=== PATIENT | male | born 1965 | race Hispanic/Latino ===

== ENCOUNTER 2017-04-18 15:53 | Inpatient (IN) | payer MEDICAID, OTHER ==
[2017-04-18 15:53] VITALS: BMI 23.6
[2017-04-18 16:21] LABS: BASO % 0.3 % (0.0-2.0); EOS % 0.3 % (0.0-4.0); HEMATOCRIT 42.3 % (35.0-51.0); LYMPH # 2.3 K/uL (1.0-4.3); LYMPH % 23.5 % (20.0-40.0); MEAN CELL VOLUME 89.2 fL (80.0-94.0); MEAN CORPUSCULAR HEMOGLOBIN 30.7 pg (27.0-31.0); MEAN CORPUSCULAR HGB CONC 34.4 g/dL (33.0-37.0); MEAN PLATELET VOLUME 8.9 fL (7.2-11.7); MONO # 0.4 K/uL (0.0-0.8); MONO % 4.5 % (0.0-10.0); RED CELL DISTRIBUTION WIDTH 13.7 % (11.5-14.5); WHITE BLOOD COUNT 9.7 K/uL (4.8-10.8)
[2017-04-18 16:27] LABS: RBC URINE < 1 /hpf (0-3); URINE BACTERIA RARE (<OCC); URINE BILIRUBIN NEGATIVE (NEGATIVE); URINE BLOOD NEGATIVE (NEGATIVE); URINE COLOR Yellow (YELLOW); URINE GLUCOSE (UA) NORMAL (Normal); URINE KETONE NEGATIVE (NEGATIVE); URINE LEUKOCYTE ESTERASE NEG Leu/uL (Negative); URINE PROTEIN NEGATIVE (NEGATIVE); URINE UROBILINOGEN NORMAL mg/dL (0.2-1.0); WBC URINE < 1 /hpf (0-5)
[2017-04-18 16:27] LABS: CHLORIDE 102 mmol/L (98-107); POTASSIUM 3.9 mmol/L (3.6-5.2); SODIUM 136 mmol/L (132-148)
[2017-04-18 16:29] LABS: BILIRUBIN,TOTAL 0.7 mg/dL (0.2-1.3); GFR AFRICAN-AMERICAN > 60
[2017-04-18 16:30] LABS: ALB/GLOB RATIO 1.2 (1.0-2.1); ALKALINE PHOSPHATASE 56 U/L (38-126); ALT/SGPT 29 U/L (21-72); AST/SGOT 29 U/L (17-59); BLOOD UREA NITROGEN 9 mg/dL (9-20); CALCIUM 9.2 mg/dl (8.6-10.4); CARBON DIOXIDE 22 mmol/L (22-30); GLUCOSE,RANDOM 98 mg/dL (75-110); TOTAL PROTEIN 7.8 g/dL (6.3-8.3)
[2017-04-18 16:31] LABS: ALCOHOL SERUM 69 mg/dl (0-10)
--- NOTE | 2017-04-18 16:44 | C.PDOC ---
History Of Present Illness 53 year old male presents to the ED for heroin, alcohol, and benzo detox. Patient was prescreened. He admits last drink and last use today prior to arrival. He has no medical complaints at this time. Time Seen by Provider: 04/18/17 16:01 Chief Complaint (Nursing): Substance Abuse History Per: Patient History/Exam Limitations: no limitations Past Medical History Reviewed: Historical Data, Nursing Documentation, Vital Signs Vital Signs: Last Vital Signs Temp 98.2 F 04/18/17 15:56 Pulse 72 04/18/17 15:56 Resp 18 04/18/17 15:56 BP 129/82 04/18/17 15:56 Pulse Ox 96 04/18/17 16:45 - Medical History PMH: Denies: Diabetes, Hepatitis, HIV, HTN, Chronic Kidney Disease, Seizures, Sexually Transmitted Disease - [facility] Procedures DETOXIFICATION SERVICES FOR SUBSTANCE ABUSE TREATMENT (03/12/16) DRUG DETOXIFICATION (03/21/15) MEDICATION MANAGEMENT (03/12/16) Family History: States: Unknown Family Hx - Social History Hx Tobacco Use: Yes Hx Alcohol Use: Yes Hx Substance Use: Yes (IVDU Heroin) - Immunization History Hx Tetanus Toxoid Vaccination: No Hx Influenza Vaccination: No Hx Pneumococcal Vaccination: No Review Of Systems Psych: Positive for: Withdrawal, Other (Polysubstance abuse ) Physical Exam - Physical Exam Appears: Non-toxic, No Acute Distress Skin: Normal Color, Warm, Dry Head: Atraumatic, Normacephalic Eye(s): bilateral: Normal Inspection, PERRL, EOMI Oral Mucosa: Moist Cardiovascular: Rhythm Regular (Regular Rate) Respiratory: Normal Breath Sounds Gastrointestinal/Abdominal: Normal Exam, Soft, No Tenderness Extremity: No Pedal Edema, No Deformity Neurological/Psych: Oriented x3, Normal Speech ED Course And Treatment - Laboratory Results Result Diagrams: 04/18/17 16:17 04/18/17 16:17 O2 Sat by Pulse Oximetry: 96 Progress Note: Patient is medically cleared for evaluation and possible admittion for Detox. Patient was accepted by . Medical Decision Making Medical Decision Making: Patient medically cleared for detox pending lab results. Disposition - Disposition Disposition: HOSPITALIZED Disposition Time: 17:13 Condition: STABLE Forms: [facility] ([facility]) - Clinical Impression Clinical Impression: Drug abuse - Scribe Statement The provider has reviewed the documentation as recorded by the Scribe Eddy Fercho Decision To Admit - Pt Status Changed To: Hospital Disposition Of: Inpatient - Admit Certification Admit to Inpatient:: After my assessment, the patient will require hospitalization for at least two midnights. This is because of the severity of symptoms shown, intensity of services needed, and/or the medical risk in this patient being treated as an outpatient. - InPatient: Physician Admission Certification: I certify that this patient requires 2 or more midnights of care for the following reason:: Patient will need more than 2 days of hospitalization to complete Detox. - . Bed Request Type: Detox Admitting Physician: Yong Mckee Patient Diagnosis: Drug abuse
[2017-04-18] MEDS ORDERED: Aluminum Hydroxide/Magnesium Hydroxide Susp (30 mL) PO PRN (19:11)
--- NOTE | 2017-04-18 19:12 | PCM.BM ---
<Christal Grossman - Last Filed: 04/18/17 19:10> Treatment Plan Problems - Problems identified on initial assessmt potiential for autonomic instability related to alcohol withdrawal Date Initiated: 04/18/17 Time Initiated: 19:11 Assessment reference: NA Status: Active potiential for opiate withdrawal Date Initiated: 04/18/17 Time Initiated: 19:11 Assessment reference: NA Status: Active Treatment assets and liabiliti Patient Assests: motivated, ADL independent, physically healthy Patient Liabilities: substance abuse - Milieu Protocol Maintain good personal hygiene: daily Encourage regular showers, daily Remind patient to perform daily oral care, daily Assist patient to perform ADL's Maintain personal safety: every shift Educate patient to report safety concerns to staff, every shift Monitor environment for contraband/sharps Medication safety: Monitor for expected outcome, potential side effects: every shift, Assess barriers to learning: every shift, Assess readiness for medication education: every shift <Jeannine Mortensen - Last Filed: 04/19/17 16:54> Family Contact Family involvement: Patient does not wish Family/SO involvement Family contact: Patient declines to allow family contact at present - Goals for Treatment Patient goals for treatment: Complete detox and transition to intermediate rehab. Discharge/Continuing Care - Education Needs Education Needs: Patient Medication, Patient Diagnosis/Disease Process, Patient Coping Skills, Patient Anger Management skills, Patient Placement options, Patient Community resources - Discharge Discharge Criteria: No longer exhibiting s/s of withdrawal, Reduction of target symptoms Discharge to:: Substance Abuse Rehab - Treatment Team Participation Patient/Family/SO Statement: 04/19/17 16:55 "I [facility] go [facility] Discussed with Family/SO: No Was Patient/Family/SO present at Treatment Team Meeting: Yes <Johanne Roy - Last Filed: 04/20/17 11:58> - Diagnosis (1) Opiate dependence Status: Acute Interventions: 04/20/17 11:57 * Assess 7x/week regarding severity of withdrawal * Educate regarding risks, benefits, side effects and alternatives of medications * Use Motivational Interviewing for abstinence * Use CBT for relapse prevention * Medication management for withdrawal symptoms * Encourage medication assisted treatment * (2) Alcohol use disorder, severe, dependence Status: Acute Interventions: 04/20/17 11:58 * Assess 7x/week regarding severity of withdrawal * Educate regarding risks, benefits, side effects and alternatives of medications * Use Motivational Interviewing for abstinence * Use CBT for relapse prevention * Medication management for withdrawal symptoms * Encourage medication assisted treatment *
[2017-04-19] MEDS: Multiple Vitamins Tab PO SCH (10:12)
--- NOTE | 2017-04-19 12:57 | PCM.PSYCH ---
Initial Psychiatric Evaluation - Initial Psychiatric Evaluation Type of Admission: Voluntary Legal Status: Capacity Chief Complaint (in patient's own words): "Relapsed" History of Present Illness and Precipitating Events: The pt is seen, chart reviewed and case discussed. He is known from previous admission. This is a 52 y.o single male who was admitted for detox for heroin and alcohol. He is having abdominal cramps and muscle weakness. He uses heroin IV 12-15 bags daily and drinks 1-2 pints and a 6-pack daily. He started heroin in September and relapsed with alcohol in July. He has a history of seizures when he withdraws from alcohol. He started drinking at age 14. He also uses cannabis and cocaine (intranasally) occasionally. He smokes cigarettes daily. He has also used Xanax before as well. He has been to 10 detoxes and was here at [facility] not long ago. After discharge, he did not follow up and relapsed. He has been to AA meetings and has tried Methadone maintenance in the past (2007), but did not comply. No hallucinations/delusions. He is having mild depression and anxiety. He was treated in the past with lexapro. He denies any suicidal ideation. PMH: congenital inguinal hernia, hep C Psych Hx: Psych hospitalization in 1993 for suicidal ideation. Family Psych Hx: mother- bipolar d/o Social Hx: Pt is single and lives with mother again. He has one daughter who is 21 y.o. 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 Current Medications: Active Medications Generic Name Dose Route Start Last Admin Trade Name Freq PRN Reason Stop Dose Admin Al Hydrox/Mg Hydrox/Simethicone 30 ml 04/18/17 19:11 Maalox 30 Ml PO Q8 PRN Indigestion / Heartburn Chlordiazepoxide 25 mg 04/19/17 00:00 04/19/17 06:39 Librium PO 04/22/17 23:59 25 mg Q6 KARMA Administration Taper Chlordiazepoxide 25 mg 04/18/17 19:09 04/18/17 20:03 Librium PO 25 mg Q4H PRN Administration Alcohol Withdrawal Clonidine HCl 0.1 mg 04/18/17 19:08 Catapres PO Q8 PRN opiate withdrawal Dicyclomine HCl 10 mg 04/18/17 19:11 Bentyl PO Q6 PRN stomach cramps Folic Acid 1 mg 04/19/17 10:00 04/19/17 10:13 Folic Acid PO 1 mg DAILY KARMA Administration Hydroxyzine HCl 25 mg 04/18/17 19:07 04/18/17 20:03 Atarax PO 25 mg Q6 PRN Administration Anxiety Methadone HCl 15 mg 04/19/17 10:00 04/19/17 10:36 Methadone PO 04/23/17 09:59 15 mg Q24H KARMA Administration Taper Multivitamins 1 tab 04/19/17 10:00 04/19/17 10:12 Hexavitamin PO 1 tab DAILY KARMA Administration Nicotine 1 patch 04/19/17 10:45 04/19/17 11:03 Nicoderm Cq TD 1 patch DAILY KARMA Administration Thiamine HCl 100 mg 04/19/17 10:00 04/19/17 10:13 Vitamin B1 Tab PO 100 mg DAILY KARMA Administration Trazodone HCl 100 mg 04/19/17 10:23 Desyrel PO HS PRN Insomnia Past Psychiatric History - Past Psychiatric History Previous Treatment History: Inpatient Pertinent Medical Hx (Current Medical&Sleep Prob, Allergies): Allergies Allergy/AdvReac Type Severity Reaction Status Date / Time Penicillins Allergy ANAPHYLAXIS Verified 04/18/17 15:58 No Known Home Med 04/18/17 Review of Systems - Neurological Neurological: UNREMARKABLE - Psychiatric Psychiatric: Abnormal Sleep Pattern, Anxiety. absent: Hallucinations, Homicidal Ideation, Paranoia, Suicidal Ideation Mental Status Examination - Personal Presentation Personal Presentation: Looks stated age - Affect Affect: Constricted - Motor Activity Motor Activity: Calm - Reliability in Providing Information Reliability in Providing Information: Good - Speech Speech: Organized - Mood Mood: Anxious - Formal Thought Process Formal Thought Process: No Impairment - Cognitive Functions Orientation: Person, Place, Situation, Time Sensorium: Alert Attention/Concentration: Attentive Estimate of Intelligence: Average Judgement: Intact, as evidence by: Insight regarding need for hospitalization Memory: Recent intact, as evidence by: Ability to recall events of the day, Remote intact, as evidenced by: Ability to recall historical events - Risk Risk: Withdrawal, Diminished functioning - Strength & Assets Inventory Strength & Assets Inventory: Cooperative - Limitations Limitations: Other DSM 5 DX - DSM 5 DSM 5 Diagnosis: Primary: Opioid Withdrawal Opioid Use Disorder- severe Alcohol Withdrawal Alcohol Use Disorder- severe Tobacco Use Disorder- moderate Major Depressive Disorder- recurrent, mild Hep C - Recommended/Plan of Treatment Treatment Recommendations and Plan of Treatment: 1) Opioid Use Disorder- severe -Methadone taper -Atarax, Zofran, Trazodone for withdrawal symptoms -Motivational Interviewing -Consider Suboxone treatment after d/c along with IOP 2) Alcohol Use Disorder- severe -Librium taper -Atarax, Zofran, Trazodone for withdrawal symptoms -IOP after d/c -Contact AA sponsor and continue attending AA groups -Motivational Interviewing 3) Tobacco Use Disorder- moderate -Nicoderm patch -MA and cessation work 4) Major Depressive Disorder- recurrent, moderate -Consider SSRI if no improvement -Supportive psychotherapy -Encourage group activities and social interaction with other patients 32 mins Projected ELOS: 5 days Prognosis: good w treatment - Smoking Cessation Smoking Cessation Initiated: Yes
[2017-04-20] MEDS: Multiple Vitamins Tab PO SCH (09:46)
--- NOTE | 2017-04-20 11:59 | PCM.PYCHPN ---
Psychiatric Progress Note - Psychiatric Progress Note Patient seen today, length of contact: 16 min Patient Chief Complaint: "Better" Problems Identified/Issues Discussed: The pt is seen, chart reviewed, case discussed with staff. The pt is compliant with medications and reports no side-effects. Symptoms are improving but needs more time to stabilize. After care discussed, support and psychoeducation given. Medication Change: Yes (detox changes daily) Medical Record Reviewed: Yes Mental Status Examination - Cognitive Function Orientation: Person, Place, Situation, Time Memory: Intact Attention: WNL Concentration: Poor Association: WNL Fund of Knowledge: WNL - Mood Mood: Anxious - Affect Affect: Constricted - Speech Speech: Appropriate - Formal Thought Process Formal Thought Process: No Impairment - Suicidal Ideation Suicidal Ideation: No - Homicidal Ideation Homicidal Ideation: No Goal/Treatment Plan - Goal/Treatment Plan Need for Continued Stay: Discharge may exacerbated symptoms, Severe functional impairment Progress Toward Problem(s) and Goals/Treatment Plan: 1) Opioid Use Disorder- severe -Methadone taper -Atarax, Zofran, Trazodone for withdrawal symptoms -Motivational Interviewing -Consider Suboxone treatment after d/c along with IOP 2) Alcohol Use Disorder- severe -Librium taper -Atarax, Zofran, Trazodone for withdrawal symptoms -IOP after d/c -Contact AA sponsor and continue attending AA groups -Motivational Interviewing 3) Tobacco Use Disorder- moderate -Nicoderm patch -OK and cessation work 4) Major Depressive Disorder- recurrent, moderate -Consider SSRI if no improvement -Supportive psychotherapy -Encourage group activities and social interaction with other patients - Smoking Cessation Smoking Cessation Initiated: Yes
[2017-04-21] MEDS: Multiple Vitamins Tab PO SCH (09:40)
--- NOTE | 2017-04-21 11:24 | PCM.PYCHPN ---
Psychiatric Progress Note - Psychiatric Progress Note Patient seen today, length of contact: 16 min Patient Chief Complaint: "I feel down" Problems Identified/Issues Discussed: The pt is seen, chart reviewed, case discussed with staff. Support given, CBT and CT used briefly No new symptoms reported, improving slowly and needs more time No SEs from medications, risks discussed. After care [facility] Lexapro started for depressive sxs and anxiety. Risks discussed Medication Change: Yes (detox changes daily) Medical Record Reviewed: Yes Mental Status Examination - Cognitive Function Orientation: Person, Place, Situation, Time Memory: Intact Attention: WNL Concentration: Poor Association: WNL Fund of Knowledge: WNL - Mood Mood: Anxious - Affect Affect: Constricted - Speech Speech: Appropriate - Formal Thought Process Formal Thought Process: No Impairment - Suicidal Ideation Suicidal Ideation: No - Homicidal Ideation Homicidal Ideation: No Goal/Treatment Plan - Goal/Treatment Plan Need for Continued Stay: Discharge may exacerbated symptoms, Severe functional impairment Progress Toward Problem(s) and Goals/Treatment Plan: 1) Opioid Use Disorder- severe -Methadone taper -Atarax, Zofran, Trazodone for withdrawal symptoms -Motivational Interviewing -Consider Suboxone treatment after d/c along with IOP 2) Alcohol Use Disorder- severe -Librium taper -Atarax, Zofran, Trazodone for withdrawal symptoms -IOP after d/c -Contact AA sponsor and continue attending AA groups -Motivational Interviewing 3) Tobacco Use Disorder- moderate -Nicoderm patch -CT and cessation work 4) Major Depressive Disorder- recurrent, moderate -Lexapro 5 mg and then 10 mg -Supportive psychotherapy -Encourage group activities and social interaction with other patients
[2017-04-22 08:36] VITALS: BP 135/77; PULSE 64; RESP 19; TEMP 97.8; O2SAT 96
--- NOTE | 2017-04-22 08:39 | PCM.PYCHDC ---
Mental Status Examination - Mental Status Examination Orientation: Person, Place, Situation, Time Memory: Intact Mood: Neutral Affect: Broad Speech: Appropriate Attention: WNL Concentration: WNL Association: WNL Fund of Knowledge: WNL Formal Thought Process: No Impairment Suicidal Ideation: No Current Homicidal Ideation?: No Discharge Summary - Discharge Note Reason for Hospitalization: Heroin detox Consultations:: List each consultation separately and include: 1. Reason for request. 2. Findings. 3. Follow-up Summary of Hospital Course include:: 1. Description of specific treatment plan utilized for patients during their course of treatmen. 2. Summarize the time- course for resolution of acute symptoms and/or regressed behaviors. 3. Describe issues identified and worked on during hospitalization. 4. Describe medication utilized. 5. Describe medical problems identified and treated. 6. Reassessment of suicide risk Summary of Hospital Course: The pt is seen, chart reviewed and case discussed. On admission: This is a 52 y.o single male who was admitted for detox for heroin and alcohol. He is having abdominal cramps and muscle weakness. He uses heroin IV 12-15 bags daily and drinks 1-2 pints and a 6-pack daily. He started heroin in September and relapsed with alcohol in July. He has a history of seizures when he withdraws from alcohol. He started drinking at age 14. He also uses cannabis and cocaine (intranasally) occasionally. He smokes cigarettes daily. He has also used Xanax before as well. He has been to 10 detoxes and was here at [facility] [place] not long ago. After discharge, he did not follow up and relapsed. He has been to AA meetings and has tried Methadone maintenance in the past (2007), but did not comply. No hallucinations/delusions. He is having mild depression and anxiety. He was treated in the past with lexapro. He denies any suicidal ideation. PMH: congenital inguinal hernia, hep C Psych Hx: Psych hospitalization in 1993 for suicidal ideation. Family Psych Hx: mother- bipolar d/o Social Hx: Pt is single and lives with mother again. He has one daughter who is 21 y.o. 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 Hospital course: The pt was admitted and started on treatment with psychotherapy, support, psychoeducation and medications. [place] and CBT used. The pt attended groups and activities, as well as milieu therapy. All the risks and benefits of medications are discussed and the patient understood and agreed. The pt improved with the treatments provided. After care discussed with the patient. He chose to go to [facility] . - Final Diagnosis (DSM 5) Condition upon Discharge: STABLE DSM 5: Primary: Opioid Withdrawal Opioid Use Disorder- severe Alcohol Withdrawal Alcohol Use Disorder- severe Tobacco Use Disorder- moderate Major Depressive Disorder- recurrent, mild Hep C Disposition: HOME/ ROUTINE Follow-up Treatment Plan: Continue below medications after discharge. Follow after care plan as discussed. Use relapse prevention skills Return to ER or call 911 if suicidal, homicidal or symptoms relapse. Stay away from stress, alcohol and drugs. See primary doctor regularly and get labs. Prescriptions/Medication Reconciliation: Escitalopram [Lexapro] 10 mg PO DAILY #30 tab traZODone [Desyrel] 100 mg PO HS PRN #30 tab PRN Reason: Insomnia - Smoking Cessation Smoking Cessation Medication prescribed: No - Antipsychotic Medications Pt discharged on 2 or more routine antipsychotic medications: No
[2017-04-22] MEDS: Multiple Vitamins Tab PO SCH (09:12)
== END 2017-04-22 09:50 | disposition home or self-care (01) | DRG 744 ==
LOC: C.ER 15:53 → C.7D 18:12
PROC: HZ2ZZZZ Detoxification Services for Substance Abuse Treatment (ICD-10-PCS; principal; 2017-04-18)
PROC: HZ46ZZZ Group Counseling for Substance Abuse Treatment, Psychoeducation (ICD-10-PCS; 2017-04-18)
PROC: HZ59ZZZ Individual Psychotherapy for Substance Abuse Treatment, Supportive (ICD-10-PCS; 2017-04-18)
PROC: GZ3ZZZZ Medication Management (ICD-10-PCS; 2017-04-18)
PROC: GZHZZZZ Group Psychotherapy (ICD-10-PCS; 2017-04-18)
PROC: GZ56ZZZ Individual Psychotherapy, Supportive (ICD-10-PCS; 2017-04-18)
PROC: HZ90ZZZ Pharmacotherapy for Substance Abuse Treatment, Nicotine Replacement (ICD-10-PCS; 2017-04-18)
DX: F10.239 Alcohol dependence with withdrawal, unspecified (principal); F33.1 Major depressive disorder, recurrent, moderate; F11.23 Opioid dependence with withdrawal; F12.90 Cannabis use, unspecified, uncomplicated; F17.210 Nicotine dependence, cigarettes, uncomplicated; F14.10 Cocaine abuse, uncomplicated; B18.2 Chronic viral hepatitis C